=== PATIENT | female | born 2000 | race Caucasian/White ===

== ENCOUNTER 2019-11-28 11:44 | Outpatient (CLI) | payer OTHER, SELFPAY ==
--- NOTE | 2019-11-28 12:04 | US_ITS ---
WS: [id number] EARLY OBSTETRICAL ULTRASOUND (<14 WEEKS). HISTORY: VAGINAL BLEEDING/1ST TRIMESTER COMPARISON: None available. Transabdominal and transvaginal imaging is submitted. Uterus is anteverted. Uterus is normal size. Endometrium is thickened and mildly heterogeneous measuring 8 mm. No intrauterine gestation is identi fied. There is a small amount of free fluid in the cul-de-sac. RIGHT ovary is identified and measures 2.8 x 1.7 x 2.7 cm. Normal vascularity. LEFT ovary is not identified. In the LEFT adnexa is a complex well-circumscribed mass which does not move or peristalsis. Mixed echogenicity with areas of increased echogenicity. This complex mass measu res 2.7 x 3.2 x 2.4 cm. US/US OB <=14 wk fetus w transvag IMPRESSION: 1. No intrauterine gestation identified. Favor complete spontaneous . Without visualizing an intrauterine gestation ectopic cannot be excluded if the re is a positive beta hCG. 2. LEFT adnexal mass with variable echogenicity measures 2.7 x 3.2 x 2.4 cm. D ifferential includes a dermoid and thought less likely to be an ectopic or gladys l loop or torsed ovary.
--- NOTE | 2019-11-28 20:59 | P.HP_ITS ---
Providers/Chief Complaint Primary Care Provider: Vernon Grider MD Chief Complaint: vaginal bleeding History of Present Illness Yaneli Noguera is a 19 year old at 6.6 weeks by LMP of 10/11/2019. She presented to my clinic with concerns of light bleeding with associated left lower pelvic pain that started on the evening of 11/26/2019. The bleeding turned into small clots on 11/27/2019 and then slowly decreased. The patient had not yet had an initial US and a Quantitative bhcg was drawn on 11/27/2019 that was 961. Her progesterone level was 2.3. She was not able to get an US done that day, so had one done on the morning of 11/28/2019. It did not show an intrauterine but did show a left adnexal mass without blood flow to it of uncertain cause. Differential included a dermoid cyst, torsed ovary or ectopic . Due to increasing pain in the left pelvic region and an unclear picture, I spoke with Dr Barragan and we felt it best for the patient to be admitted for observation to follow her pain, quantitativ bhcg levels and status. The patient continues to have light bleeding but has not passed any large clots. Medications/Allergies Allergies Allergy/AdvReac Type Severity Reaction Status Date / Time No Known Allergies Allergy Verified 11/28/19 16:44 PFSH Acute PFSH: Social History Smoking and tobacco status: former smoker Coding Level of Care Code Acute Manufacturing Specialist for [employer]
== END 2019-11-28 11:45 | disposition home or self-care (01) ==
LOC: RAD 11:53
PROVIDERS: PCP Family Medicine; Visit Provider Family Medicine
DX: O46.91 Antepartum hemorrhage, unspecified, first trimester (principal)
CPT/HCPCS: 76801; 76817

== ENCOUNTER 2019-11-28 15:54 | Observation (INO) | payer OTHER, SELFPAY ==
[2019-11-28 16:45] VITALS: BP 143/88; PULSE 98; RESP 14; TEMP 37.4; O2SAT 100; BMI 22.9
[2019-11-28 18:01] LABS: Basophils % 0.6 %; Eosinophils % 0.5 %; Hematocrit 42.2 % (37.0-47.0); Hemoglobin 13.8 g/dL (11.5-15.3); Lymphocytes # 1.4 10^3/uL (0.8-4.8); Lymphocytes % 21.5 %; Mean Corpuscular HGB Conc 32.7 g/dL (30.0-36.0); Mean Corpuscular Hemoglobin 30.1 pg (28.0-34.0); Mean Corpuscular Volume 91.9 fL (81-99); Monocytes # 0.5 10^3/uL (0.2-0.9); Monocytes % 8.1 %; Neutrophils # 4.3 10^3/uL (1.8-7.7); Nucleated Red Blood Cells % 0 %; Platelet Count 182 10^3/cmm (130-400); Red Blood Count 4.59 10^6/uL (4.1-5.3); Red Cell Distribution Width 11.9 % (12.1-15.1); White Blood Count 6.3 10^3/uL (4.0-10.0)
[2019-11-28 18:15] VITALS: RESP 18
[2019-11-28 18:16] LABS: Lactate (Lactic Acid level) 1.5 mmol/L (0.5-2.2)
[2019-11-28 18:18] LABS: Alanine Aminotransferase 18 U/L (0-33); Albumin Level 4.9 g/dL (3.5-5.2); Alkaline Phosphatase 65 IU/L (35-105); Anion Gap 15.9 (5-19); Aspartate Amino Transferase 18 U/L (0-32); Blood Urea Nitrogen 10 mg/dL (6-20); Calcium 9.8 mg/dL (8.5-10.5); Carbon Dioxide 24 mmol/L (22-29); Chloride 104 mmol/L (98-107); Glomerular Filtration Rate 90.5 mL/min (90-130); Glucose 84 mg/dL (65-115); Lipase 27 U/L (13-60); Osmolality Calculated 285 mOsm/kg (285-295); Potassium 3.9 mmol/L (3.5-5.1); Sodium 140 mmol/L (136-145); Total Bilirubin 0.8 mg/dL (0.15-1.2); Total Protein 6.9 g/dL (6.6-8.7)
[2019-11-28] MEDS: acetaminophen 500 mg Tablet PO (18:22)
[2019-11-28 18:46] VITALS: BP 138/63; PULSE 75; RESP 17; O2SAT 96
[2019-11-28 19:24] VITALS: BP 145/88; PULSE 81; RESP 18; O2SAT 96
[2019-11-28 19:54] VITALS: BP 147/93; PULSE 84; RESP 16; TEMP 37.1; O2SAT 100
[2019-11-28 20:15] LABS: Urine Appearance Clear (CLEAR); Urine Color Yellow (Yellow)
[2019-11-28 20:16] LABS: Add Urine Culture? No; Add Urine Microscopic? YES; Bacteria Urine TRACE; Bilirubin Urine Neg (NEGATIVE); Blood Urine 2+ (Negative); Glucose Urine UA Norm (Normal); Ketones Urine Negative (Negative); Leukocyte Esterase Urine Negative (Negative); Mucus Urine 2+; Nitrate Urine Negative (Negative); Protein Urine Neg (Negative); RBC Urine 0-4 /hpf (0-2); Squamous Epithelial Cell Urine 0-4 (0-5); Urobilinogen Urine Neg (Negative); pH Urine 6.5 (5-7)
--- NOTE | 2019-11-28 20:20 | W.ED.ABDPA2 ---
HPI - Abdominal Pain General: Chief Complaint: Abdominal Pain Stated Complaint: cramping and bleeding, preg x 7 weeks Time Seen by Provider: 11/28/19 17:57 Source: patient and other (her OB) Limitations: no limitations History of Present Illness: HPI narrative: Patient is a 19-year-old 1 was about 6 weeks who noticed abdominal cramping and vaginal bleeding that started about 3 or 4 days ago. Bleeding and cramping is still present and worsening. She has seen her OB and an ultrasound done today showed no intrauterine gestation sac identified. There was a left adnexal mass which could be an ectopic , bowel loop, torsed ovary or dermoid cyst. Her OB wanted her direct admitted for evaluation and monitoring and serial hCG monitoring. She denies any fever or urinary symptoms. MD elicited complaint: abdominal pain Associated Symptoms: Denies chills and fever(s) Review of Systems General: Reports: 10 or more systems reviewed and unremarkable except in HPI and below Const: Denies: fever(s), chills or body aches Card: Denies: palpitations, irregular heart rhythm, edema or swelling of feet/ankles Resp: Denies: dyspnea, productive cough or non-productive cough GI: Reports: abdominal pain : Reports: vaginal bleeding Musc: Denies: neck pain, back pain or extremity swelling Skin/Breast: Denies: rash, pruritus or erythema Neuro: Denies: headache(s), numbness in extremities or weakness in extremities Endo: Denies: polyuria, polydipsia or tired all the time PFSH ED PFSH: Social History Smoking and tobacco status: former smoker Physical Exam Const: COMMON NORMALS: no acute distress, average body habitus, patient oriented x3, no limitations, healthy appearing, alert and well nourished HENMT: COMMON NORMALS: normocephalic, atraumatic and moist oral mucous membranes HEAD & SCALP: normocephalic and atraumatic Neck/C-Spine: COMMON NORMALS: no meningeal signs and no JVD Resp: COMMON NORMALS: normal respiratory effort, No retractions, No use of accessory muscles, clear to auscultation bilaterally and percussion normal AUSCULTATION: clear to auscultation bilaterally PERCUSSION: percussion normal Cardio: COMMON NORMALS: no JVD, regular rate, regular rhythm, S1 normal heart sound present, S2 normal heart sound present, No gallops present (Cardio), No clicks present (Cardio), No murmurs present (Cardio), No rub (Cardio) and Peripheral pulses 2+ throughout RATE: regular rate RHYTHM: regular rhythm HEART SOUNDS: S1 normal heart sound present and S2 normal heart sound present PERIPHERAL PULSES: Peripheral pulses 2+ throughout GI: COMMON NORMALS: Normal to inspection, nondistended, normoactive bowel sounds present, Soft to palpation, non-tender, No hepatosplenomegaly present, no masses and no bruits PALPATION: Yes Soft to palpation, Yes Tenderness to palpation present (GI) Details: LLQ and other (suprapubic) and Yes No hepatosplenomegaly present : COMMON NORMALS: Yes no CVA tenderness BLADDER/KIDNEY EXAM: Yes no CVA tenderness Back/Pelvis: COMMON NORMALS: no CVA tenderness Neuro: COMMON NORMALS: patient oriented x3 SENSORIUM/ORIENTATION: Yes alert MENINGEAL SIGNS: Yes no meningeal signs Skin: COMMON NORMALS: no rashes or lesions noted, no wounds, turgor normal, no jaundice, no petechiae and no mottling GENERAL SKIN EXAM: no rashes or lesions noted and turgor normal Course Consultations: Consultation #1: Dr. Grider, he kindly accepted patient to his service. Time: 18:12 Vital Signs: Vital signs: Vital Signs Temperature 98.7 F 11/28/19 19:54 Pulse Rate 84 11/28/19 19:54 Respiratory Rate 16 11/28/19 19:54 Blood Pressure 147/93 11/28/19 19:54 Pulse Oximetry 100 11/28/19 19:54 MDM - Abdominal Pain MDM Narrative: Medical decision making narrative: 19-year-old female patient who is 6 weeks and has some vaginal bleeding. She is being admitted by her OB for further evaluation and management. She may possibly have had a spontaneous , but due to left adnexal mass an ectopic or a torsed ovary cannot be ruled out. Medical Records: Attestation: I reviewed the patient's medical records. Lab Data: Attestation: I reviewed the patient's lab results. Labs: Lab Results 06/26/20 06/26/20 06/26/20 Range/Units 17:45 17:45 17:45 WBC 6.3 (4.0-10.0) 10^3/ uL RBC 4.59 (4.1-5.3) 10^6/u L Hgb 13.8 (11.5-15.3) g/dL Hct 42.2 (37.0-47.0) % MCV 91.9 (81-99) fL MCH 30.1 (28.0-34.0) pg MCHC 32.7 (30.0-36.0) g/dL RDW 11.9 L (12.1-15.1) % Plt Count 182 (130-400) 10^3/c mm MPV 10.0 (7.4-10.4) fL Neut % (Auto) 69.0 % Lymph % (Auto) 21.5 % Jerome % (Auto) 8.1 % Eos % (Auto) 0.5 % Baso % (Auto) 0.6 % Neut # (Auto) 4.3 (1.8-7.7) 10^3/u L Lymph # (Auto) 1.4 (0.8-4.8) 10^3/u L Jerome # (Auto) 0.5 (0.2-0.9) 10^3/u L Eos # (Auto) 0.0 (0.0-0.8) 10^3/u L Baso # (Auto) 0.0 (0.0-0.1) 10^3/u L Nucleated RBC % (a uto) 0 % Nucleated RBCs # 0.0 /100WBC Sodium 140 (136-145) mmol/L Potassium 3.9 (3.5-5.1) mmol/L Chloride 104 (98-107) mmol/L Carbon Dioxide 24 (22-29) mmol/L Anion Gap 15.9 (5-19) BUN 10 (6-20) mg/dL Creatinine 0.8 (0.5-0.9) mg/dL GFR Calculation 90.5 (90-130) mL/min Glucose 84 (65-115) mg/dL Calculated Osmolal ity 285 (285-295) mOsm/k g Lactate 1.5 (0.5-2.2) mmol/L Calcium 9.8 (8.5-10.5) mg/dL Total Bilirubin 0.8 (0.15-1.2) mg/dL AST 18 (0-32) U/L ALT 18 (0-33) U/L Alkaline Phosphata se 65 (35-105) IU/L Total Protein 6.9 (6.6-8.7) g/dL Albumin 4.9 (3.5-5.2) g/dL Globulin 2.0 (1.3-4.6) g/dL Lipase 27 (13-60) U/L Discharge Plan Discharge Patient Disposition: Placed in Observation Admit Provider: Vernon Grider Clinical Impression: Vaginal bleeding Condition: Stable Interventions: ED Discharge Assessment Last Done: 11/28/19 19:24 ED Charges Last Done: 11/28/19 19:24 Discharge Date/Time: 11/28/19 19:20 Coding Level of Care Code ED Operations Vocational Instructor for Noemi Goodrich
--- NOTE | 2019-11-28 21:08 | P.HP_ITS ---
Providers/Chief Complaint Admitting Physician: Vernon Grider MD Primary Care Provider: Vernon Grider MD Chief Complaint: cramping and bleeding, preg x 7 weeks History of Present Illness Yaneli Noguera is a 19 year old at 6.6 weeks by LMP of 10/11/2019. She presented to my clinic with concerns of light bleeding with associated left lower pelvic pain that started on the evening of 11/26/2019. The bleeding turned into small clots on 11/27/2019 and then slowly decreased. The patient had not yet had an initial US and a Quantitative bhcg was drawn on 11/27/2019 that was 961. H er progesterone level was 2.3. She was not able to get an US done that day, so had one done on the morning of 11/28/2019. It did not show an intrauterine but did show a left adnexal mass without blood flow to it of uncertain cause. Differential included a dermoid cyst, torsed ovary or ectopic . Due to increasing pain in the left pelvic region and an unclear picture, I spoke with Dr Barragan and we felt it best for the patient to be admitted for observation to follow her pain, quantitativ bhcg levels and status. The patient continues to have light bleeding but has not passed any large clots. Review of Systems Narrative: The patient denies chest pains, shortness of breath, nausea, vomiting, diarrhea, constipation, dysuria. Medications/Allergies Home Medications Medication Instructions Recorded Confirmed Last Taken Type PNV cmb#95-ferrous fumarate-FA 1 tab PO DAILY 11/28/19 11/28/19 11/28/19 08:00 History [ Multivitamins] acetaminophen [Tylenol] 650 mg PO QID PRN 11/28/19 11/28/19 11/28/19 15:00 History Allergies Allergy/AdvReac Type Severity Reaction Status Date / Time No Known Allergies Allergy Verified 11/28/19 16:44 PFSH Acute PFSH: Family History (Updated 11/28/19 @ 21:14 by Vernon Grider MD) Mother Diabetes Social History Smoking and tobacco status: former smoker Vitals/I&O/Wt Last Vital Signs Temp 98.7 F 11/28/19 19:54 Pulse 84 11/28/19 19:54 Resp 16 11/28/19 19:54 BP 147/93 11/28/19 19:54 Pulse Ox 100 11/28/19 19:54 Weight last 48 hrs Weight 160 lb Physical Exam Narrative: EXAM NARRATIVE: General: Alerta and oriented x 3 Mouth: Mucous membranes moist Cardiac: Regular rate and rhythm without murmurs Lungs: Clear to auscultations bilaterally without wheezes, crackles or ronchi Abdomen: There is moderate to severe tenderness in the left lower pelvic region to palpation. No rebound tenderness noted. No significant pain in the abdomen otherwise. Extremities: No edema. Data : 11/28/19 17:45 11/28/19 17:45 A&P Additional A&P Information The cause of the patient's underlying pain is not clear at this time but the differential would be an ectopic , dermoid tumor or torsed ovary without blood flow. The patient will be admitted for observation to watch for signs of complications of these and we will recheck her Quantitative Bhcg tomorrow at 1pm which will be 48 hours from her last lab draw that was 961. Depending on findings will determine the next step. I doubt that she has an intrauterine as her levels should be much higher than this based on her LMP but if this is a normal I would expect a doubling of her Quantitative hcg in 48-[address] Barragan has been notified of this patient and will consult. I appreciate his assistance with this patient. He will determine the need for any possible surgical management. Attestations Medical Necessity Statement*: The patient is currently under observation for the above issues. I expect her stay to be less than two midnights at this time but will follow based on testing. Coding Level of Care Code Acute Workforce Development Program Director for Noemi Goodrich
[2019-11-28] MEDS: dextrose 5%-sod chloride 0.9% 1,000 ML 125 ML IV (22:09)
[2019-11-28 23:44] VITALS: BP 130/80; PULSE 72; RESP 16; TEMP 37.2
[2019-11-29 05:27] VITALS: BP 123/69; PULSE 81; RESP 16; TEMP 36.7; O2SAT 99
--- NOTE | 2019-11-29 06:24 | PC.NURSE ---
pt rested well tonight with no acute events. Generalized pain through lower abd with sharp pain to the left side on occassion. Pt had good urine output and early this morning passed what was described by pt as a quarter sized clot/tissue .
[2019-11-29] MEDS: dextrose 5%-sod chloride 0.9% 1,000 ML 125 ML IV ×2 (06:35→13:57)
[2019-11-29] MEDS: prenatal vitamin Capsule 1 CAP PO (07:06)
[2019-11-29] MEDS: acetaminophen 500 mg Tablet PO ×2 (07:54→13:56)
[2019-11-29 08:00] VITALS: BP 121/77; PULSE 94; RESP 12; TEMP 36.7; O2SAT 100
--- NOTE | 2019-11-29 11:26 | PC.NURSE ---
BLOOD CLOTS PATIENT HAS PASSED A FEW SMALL CLOTS WITH URINATION THIS MORNING. CRAMPING HAS IMPROVED.
[2019-11-29 12:00] VITALS: BP 128/74; PULSE 71; RESP 14; TEMP 37.1; O2SAT 100
--- NOTE | 2019-11-29 12:47 | PM.PN ---
Subjective Subjective: Interval history: The patient had some mild bleeding overnight as well as one clot that was approximately ping-pong ball size. It did not look like it had any tissue in it. Overall her pain has been stable and has been controlled well with Tylenol. Vitals/I&O/Wt Last Vital Signs Temp 98.8 F 11/29/19 12:00 Pulse 71 11/29/19 12:00 Resp 14 11/29/19 12:00 BP 128/74 11/29/19 12:00 Pulse Ox 100 11/29/19 12:00 11/28/19 11/29/19 11/29/19 22:59 06:59 14:59 Intake Total 500 / 500 950 / 1450 Output Total 250 / 250 775 / 1025 750 / 750 Balance 250 / 250 175 / 425 -750 / -750 Weight last 48 hrs Weight 160 lb Physical Exam Narrative: EXAM NARRATIVE: General: Alert and oriented x3 Eyes: PERRLA, EOMI Mouth: Mucous membranes moist Cardiac: Regular rate and rhythm without murmurs Lungs: Clear to auscultation bilaterally without wheezes, crackles or rhonchi Abdomen: No hepatosplenomegaly present. Mild to moderate pain in the left lower abdomen and suprapubic region. Slightly improved from yesterday's exam. Extremities: No significant edema. Data : 11/28/19 17:45 11/28/19 17:45 A&P Additional A&P Information The patient will get her hCG level drawn at approximately 1:00 this afternoon. We will await results and if the levels are above 1500, will plan for repeat ultrasound. If they are below 1500 we will decide based on levels. I appreciate Dr. Barragan's consultation with this patient. Further plans in terms of treatment options which may include surgical intervention or methotrexate will be deferred to Dr. Barragan based on his recommendations. Currently the patient is hemodynamically stable. Potential contraindications to methotrexate use may be uncertainty of the cause of her left adnexal mass as well as living approximately 45 minutes from the hospital. All questions were answered. Attestations Medical Necessity Statement*: The patient continues to be under observation for the above. We will proceed pending hCG levels. Coding Level of Care Code Acute Railroad Car Inspector for Noemi Goodrich
[2019-11-29 14:01] LABS: Basophils % 0.9 %; Eosinophils % 0.6 %; Hematocrit 38.8 % (37.0-47.0); Hemoglobin 12.9 g/dL (11.5-15.3); Lymphocytes # 1.3 10^3/uL (0.8-4.8); Lymphocytes % 27.2 %; Mean Corpuscular HGB Conc 33.2 g/dL (30.0-36.0); Mean Corpuscular Hemoglobin 30.3 pg (28.0-34.0); Mean Corpuscular Volume 91.1 fL (81-99); Mean Platelet Volume 10.3 fL (7.4-10.4); Monocytes # 0.4 10^3/uL (0.2-0.9); Neutrophils # 2.9 10^3/uL (1.8-7.7); Neutrophils % 63.1 %; Nucleated Red Blood Cells % 0 %; Platelet Count 148 10^3/cmm (130-400); Red Blood Count 4.26 10^6/uL (4.1-5.3); Red Cell Distribution Width 11.9 % (12.1-15.1); White Blood Count 4.6 10^3/uL (4.0-10.0)
--- NOTE | 2019-11-29 14:29 | PC.CHAP ---
Pastoral Care Encounter/Spiritual Assessment Type of Contact [] Declined videotape operator visit [] Patient/Family/Request visit [] Outpatient visit [] Follow-up visit [] Physician referral [] Code/Alert [X] Routine visit [] Staff referral [] Actively dying [] Patient sleeping [] Family support [] [] Out of room [] Palliative care [] [] Receiving care in room [] Pre-surgical visit [] Trauma [] Long length of stay [] ICU visit [] Other: Relational/Emotional Strength [] Patient feels connected with others/family/visitors/staff [] Distress [] Loneliness/isolation [] Abandonment Spirituality of Patient [] Person of [place] [] Attends Quaker of their [place] [] Believes in Prayer [] Reads Bible or Zoroastrianism materials [] There are Spiritual issues to be addressed Monogram Machine Operator Interventions [X] Prayer [X] Active listening [] Non-anxious presence [] Spiritual/emotional support [] Crisis/trauma care [] Spiritual counseling [] Bereavement support [] Provided bereavement packet [] Provided Bible/devotional materials [] Provided toy/stuffed animal, coloring book to patient or family member [] Provided Communion [] Anointing/[place] [] Salvation [] Completed spiritual assessment [] Other: Impact on Illness or Injury [] Angry [] Fearful [] Anxious [] Often cries [] Exhaustion [] Unable to work [] Unable to attend latter-day [] Unable to walk/stand [] Unable to read [] Unable to drive [] Unable to eat/drink [] Unable to sleep [] Unable to be with family [] Patient intubated [] Other: Summary 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 SHE REQUESTS DAILY DIRECTOR OF MATERIALS MANAGEMENT VISITS. HAD PRAYER, WILL HAVE PRAYER AGAIN AND AGAIN. A VERY UPLIFTING YOUNG LADY TO VISIT. Time spent with patient
--- NOTE | 2019-11-29 15:10 | PC.NURSE ---
HCG RESULTS DR. ENGLE CALLED WITH HCG RESULTS. INSTRUCTED TO CONTACT DR. RONQUILLO.
--- NOTE | 2019-11-29 15:21 | PM.DCS ---
Discharge Providers Date of Admission: 11/28/19 18:18 Date of Discharge: November 29, 2019 Attending Provider at Admission: Vernon Grider MD Attending Provider at Discharge: Vernon Grider MD Primary Care Provider: Vernon Grider MD Diagnoses at Discharge Discharge Diagnosis (1) Adnexal mass: Status: Acute (2) Miscarriage: Status: Acute Reason for Visit Reason for Visit: cramping and bleeding, preg x 7 weeks Hospital Course Hospital Course: The patient was admitted to the hospital for observation secondary to pain in the left adnexa with a positive test associated with bleeding and a left adnexal mass on ultrasound without signs of an intrauterine . There was concern that this could be an ectopic versus an early miscarriage with a separate left adnexal cyst or mass. The patient was monitored overnight and her beta-hCG levels declined from 961 in the clinic to 148, 48 hours later. The patient's pain is decreasing and she did pass something consistent with tissue. At this time it is felt that the patient had a miscarriage from an intrauterine and that she has a separate left adnexal mass that was likely present prior to . The differential for this would be a cyst versus a dermoid tumor. In order to follow-up on this and confirm that it is not growing in size quickly that would be concerning for a more immediate need for surgical intervention, we will get a repeat ultrasound early next week. Dr. Barragan was consulted for this case and give his recommendations as above. The patient will follow-up with me early next week for further evaluation. We will need to follow the hCG levels to 0 and further evaluation of the left adnexal mass will continue to be needed. Physical Exam Narrative: EXAM NARRATIVE: General: Alert and oriented x3 Eyes: PERRLA, EOMI Mouth: Mucous membranes moist Cardiac: Regular rate and rhythm without murmurs Lungs: Clear to auscultation bilaterally without wheezes, crackles or rhonchi Abdomen: No hepatosplenomegaly present. Mild to moderate pain in the left lower abdomen and suprapubic region. Slightly improved from yesterday's exam. Extremities: No significant edema. Discharge Data Data Completed and Pending: Labs from last 24 hours 11/29/19 11/29/19 11/28/19 13:57 13:57 18:50 WBC 4.6 RBC 4.26 Hgb 12.9 Hct 38.8 MCV 91.1 MCH 30.3 MCHC 33.2 RDW 11.9 L Plt Count 148 MPV 10.3 Neut % (Auto) 63.1 Lymph % (Auto) 27.2 Walton % (Auto) 8.0 Eos % (Auto) 0.6 Baso % (Auto) 0.9 Neut # (Auto) 2.9 Lymph # (Auto) 1.3 Walton # (Auto) 0.4 Eos # (Auto) 0.0 Baso # (Auto) 0.0 Nucleated RBC % (a uto) 0 Nucleated RBCs # 0.0 Sodium Potassium Chloride Carbon Dioxide Anion Gap BUN Creatinine GFR Calculation Glucose Calculated Osmolal ity Lactate Calcium Total Bilirubin AST ALT Alkaline Phosphata se Total Protein Albumin Globulin Lipase Ser , Paola i-Qnt 148.20 Urine Color Yellow Urine Appearance Clear Urine pH 6.5 Ur Specific Gravit y 1.020 Urine Protein Neg Urine Glucose (UA) Norm Urine Ketones Negative Urine Blood 2+ H Urine Nitrate Negative Urine Bilirubin Neg Urine Urobilinogen Neg Ur Leukocyte Iveth ase Negative Urine RBC 0-4 H Urine WBC None Ur Squamous Epith Cells 0-4 H Amorphous Sediment Not Reportable Urine Bacteria Trace Urine Mucus 2+ 11/28/19 11/28/19 11/28/19 17:45 17:45 17:45 WBC 6.3 RBC 4.59 Hgb 13.8 Hct 42.2 MCV 91.9 MCH 30.1 MCHC 32.7 RDW 11.9 L Plt Count 182 MPV 10.0 Neut % (Auto) 69.0 Lymph % (Auto) 21.5 Walton % (Auto) 8.1 Eos % (Auto) 0.5 Baso % (Auto) 0.6 Neut # (Auto) 4.3 Lymph # (Auto) 1.4 Walton # (Auto) 0.5 Eos # (Auto) 0.0 Baso # (Auto) 0.0 Nucleated RBC % (a uto) 0 Nucleated RBCs # 0.0 Sodium 140 Potassium 3.9 Chloride 104 Carbon Dioxide 24 Anion Gap 15.9 BUN 10 Creatinine 0.8 GFR Calculation 90.5 Glucose 84 Calculated Osmolal ity 285 Lactate 1.5 Calcium 9.8 Total Bilirubin 0.8 AST 18 ALT 18 Alkaline Phosphata se 65 Total Protein 6.9 Albumin 4.9 Globulin 2.0 Lipase 27 Ser , Paola i-Qnt Urine Color Urine Appearance Urine pH Ur Specific Gravit y Urine Protein Urine Glucose (UA) Urine Ketones Urine Blood Urine Nitrate Urine Bilirubin Urine Urobilinogen Ur Leukocyte Iveth ase Urine RBC Urine WBC Ur Squamous Epith Cells Amorphous Sediment Urine Bacteria Urine Mucus Vitals: Last Vital Signs Temp 98.8 F 11/29/19 12:00 Pulse 71 11/29/19 12:00 Resp 14 11/29/19 12:00 BP 128/74 11/29/19 12:00 Pulse Ox 100 11/29/19 12:00 Discharge Plan Discharge Patient Disposition: Home, Self-Care Condition: Stable Prescriptions: Continued Tylenol 325 mg Capsule 650 mg PO QID PRN (Reason: Pain) RF: 0 Multivitamins 28 mg iron- 800 mcg Tablet 1 tab PO DAILY RF: 0 Discharge Orders: Discharge Order (Routine); Ordered 11/29/19 Ordered By: Vernon Grider Referrals: Vernon Grider MD [Primary Care Provider] - 1 week (Have her make a follow up appointment for 1-2 days after her US next week. Please set up pelvic US for or Sun of next week. Thanks. Faxed to scheduling and they should call you with an appointment for a ultra sound. Call Dr. Tran office and make a appointment for 1-2 days after your Ultra Sound.) Discharge Diet: Advance as tolerated Discharge Activity: Increase activity as tolerated Activity Restrictions/Additional Instructions: Nothing per vagina for 6 weeks. Avoid baths until after bleeding stops. Showers are okay. If your pain becomes significantly worse, please return to the ER immediately for re-evaluation. Discharge Date/Time: 11/29/19 17:00 Discharge Attestations Time Spent in Discharge Care*: greater than 30 min Quality Metrics Clinical Quality Measures During this hospital stay, did patient experience: None Coding Level of Care Code Acute Natural History Collections Curator for Ch[facility] F[facility] Diagnoses Adnexal mass N94.89 Miscarriage O03.9
[2019-11-29 15:51] VITALS: BP 128/74; PULSE 71; RESP 14; TEMP 37.1; O2SAT 100
== END 2019-11-29 17:00 | disposition home or self-care (01) ==
LOC: ER 17:57 → MEDSURG 18:36
PROVIDERS: Family Medicine; Admitting Provider Family Medicine; PCP Family Medicine; Visit Provider Family Medicine
DX: O03.9 Complete or unspecified spontaneous abortion without complication (principal); N94.89 Other specified conditions associated with female genital organs and menstrual cycle
CPT/HCPCS: 12345; 36415; 80053; 81001; 83605; 83690; 84702; 85025; 96361; 96374; 99282; 99285; G0378

== ENCOUNTER 2019-12-02 09:39 | Outpatient (CLI) | payer OTHER, SELFPAY ==
--- NOTE | 2019-12-02 09:44 | US_ITS ---
WS: [id number] ULTRASOUND PELVIS TECHNIQUE: Transabdominal and transvaginal. ULTRASOUND PELVIS TECHNIQUE: Transabdominal. CLINICAL INFORMATION: PELVIC MASS : No. COMPARISON: November 28, 2019 FINDINGS: Uterus Orientation: Anteverted. Size: 8.05 cm x 4.5 cm x 3.2 cm. Masses: None. Cervix: Nabothian cyst Endometrium: Normal with trace fluid Endometrium thickness: 0.3 cm. Adnexa: Persistent indeterminant shadowing complex left adnexal lesion appears stable since the prior examination measuring 2.8 x 2.5 x 2.7 cm. Differential considerations are unchanged include dermoid versus less likely prominent bowel loop. Ectopic unlikely at this point Right ovary size: 3.1 cm x 1.6 cm x 2.2 cm. Right ovary volume: 5.9 ccm3. Free fluid: None. Other findings: None. US/US pelvic with transvaginal IMPRESSION: 1. No intrauterine gestation. 2. Again seen is the complex left adnexal lesion not significant changed. Diff erential considerations are unchanged and although nonspecific calcified dermoi d is favored. Complex endometrioma is additional consideration 3. No free fluid in the cul-de-sac.
== END 2019-12-02 09:40 | disposition home or self-care (01) ==
LOC: US 09:40
PROVIDERS: PCP Family Medicine; Visit Provider Family Medicine
DX: R19.00 Intra-abdominal and pelvic swelling, mass and lump, unspecified site (principal)
CPT/HCPCS: 76830; 76856

== ENCOUNTER → 2019-12-29 16:07 | Outpatient (BNVA) | payer OTHER, SELFPAY | PROVIDERS: PCP Family Medicine; Visit Provider Obstetrics & Gynecology | DX: D27.1 Benign neoplasm of left ovary (principal) | CPT/HCPCS: 76830 ==

== ENCOUNTER → 2020-02-27 08:31 | Outpatient (BNVA) | payer OTHER, SELFPAY | PROVIDERS: PCP Family Medicine; Visit Provider Obstetrics & Gynecology | DX: N94.89 Other specified conditions associated with female genital organs and menstrual cycle (principal); Z20.828 Contact with and (suspected) exposure to other viral communicable diseases | CPT/HCPCS: 87635 ==

== ENCOUNTER 2020-03-03 11:11 | Observation (INO) | payer OTHER, SELFPAY ==
[2020-03-01 10:47] VITALS: BMI 22.9
--- NOTE | 2020-03-01 11:06 | ANES.PREANE2 ---
Pre-Anesthetic Assessment Pre-Anesthetic Assessment: Height/Weight: Height 1.78 m Weight 72.575 kg Preop Diagnosis: Left ovarian mass Proposed Procedure: Operation Date: 03/03/20 08:00 Proposed Procedures p Laparoscopic Ovarian mass excision left 58021 N94.89(Left) - Apollo Barragan MD Familial anesthetic complications: None Social: Social History: No alcohol Comment: former smoker Exam: Pre-Anes Outpt Exam: alert, oriented x 3, clear to auscultation bilaterally and regular rate & rhythm Airway: Cervical ROM: WNL MP: 2 Dentition: Full Anesthetic Plan: ASA status: 1 Anesthesia: General Risk of > 500 ml blood loss (7ml/kg in children): No PFSH Anesthesia PFSH: Family History Mother Diabetes Hypertension Father No problems noted. Daughter No problems noted. Family/Other Cervical cancer maternal aunt CAD (coronary artery disease) maternal aunts maternal uncle Diabetes maternal aunts maternal uncle Hypertension maternal aunts maternal uncle Stroke maternal aunt Grandmother CAD (coronary artery disease) maternal Diabetes maternal Hypertension maternal Denies family history of Clotting disorder Hyperlipidemia Anesthesia complication Bleeding disorder Social History (Updated 02/23/20 @ 08:01 by Haylee Marquez RN) Smoking and tobacco status: former smoker Alcohol intake: current Alcohol intake frequency: few times a month Alcohol type: wine and hard liquor Female Reproductive History: Date of last menstrual period: 02/26/20 Data Anesthesia Cardiac Studies: No Data to Display
[2020-03-01 11:08] LABS: Add Urine Microscopic? NO
[2020-03-01 11:14] LABS: Basophils # 0.1 10^3/uL (0.0-0.1); Basophils % 1.5 %; Eosinophils # 0.1 10^3/uL (0.0-0.8); Eosinophils % 1.8 %; Hematocrit 41.9 % (37.0-47.0); Hemoglobin 13.9 g/dL (11.5-15.3); Lymphocytes # 1.2 10^3/uL (0.8-4.8); Lymphocytes % 29.8 %; Mean Corpuscular HGB Conc 33.2 g/dL (30.0-36.0); Mean Corpuscular Hemoglobin 30.7 pg (28.0-34.0); Mean Corpuscular Volume 92.5 fL (81-99); Monocytes # 0.4 10^3/uL (0.2-0.9); Monocytes % 9.3 %; Neutrophils # 2.23 10^3/uL (1.8-7.7); Neutrophils % 57.3 %; Nucleated Red Blood Cells % 0 %; Platelet Count 183 10^3/cmm (130-400); Red Blood Count 4.53 10^6/uL (4.1-5.3); White Blood Count 3.9 10^3/uL (4.0-10.0)
[2020-03-01 11:21] LABS: Bilirubin Urine Neg (Negative); Blood Urine Neg (Negative); Glucose Urine UA Norm (Normal); Ketones Urine Negative (Negative); Leukocyte Esterase Urine Negative (Negative); Nitrate Urine Negative (Negative); OR HCG Qualitative Urine Negative (Negative); Protein Urine Neg (Negative); Specific Gravity, Urine 1.015 (1.005-1.030); Urine Appearance Clear (CLEAR); Urine Color Yellow (Yellow); Urobilinogen Urine Norm (Negative); pH Urine 6.5 (5-7)
[2020-03-01 11:43] LABS: Anion Gap 11.2 (5-19); Blood Urea Nitrogen 12 mg/dL (6-20); Calcium 9.5 mg/dL (8.5-10.5); Carbon Dioxide 26 mmol/L (22-29); Chloride 107 mmol/L (98-107); Glomerular Filtration Rate 90.5 mL/min (90-130); Glucose 81 mg/dL (65-115); Osmolality Calculated 289 mOsm/kg (285-295); Potassium 4.2 mmol/L (3.5-5.1); Sodium 140 mmol/L (136-145)
[2020-03-03] VITALS (19 sets, daily range): BP systolic 92–142; BP diastolic 59–104; PULSE 60–84; RESP 12–20; TEMP 36.2–37.1; O2SAT 93–100
[2020-03-03] MEDS: scopolamine 1.5 Patch 1 PATCH TRANSDERMA (06:10)
[2020-03-03] MEDS: lactated ringers 500 ML IV (06:15)
--- NOTE | 2020-03-03 06:58 | W.PM.OPSUD ---
Surgery/Procedure H&P Update DATE OF PROCEDURE: March 03, 2020 DATE H&P PERFORMED: 02/23/20 H&P UPDATE INFORMATION: I have reviewed H&P completed within last 30 days, I have examined patient prior to procedure and No changes to prior documentation PREOP DIAGNOSIS: Left ovarian mass PLANNED PROCEDURE: Operation Date: 03/03/20 07:00 Proposed Procedures p Laparoscopic Ovarian mass excision left 73147 N94.89(Left) - Apollo Barragan MD
[2020-03-03] MEDS: sodium chloride 0.9% 1,000 ML 30 ML IV (07:01)
--- NOTE | 2020-03-03 08:56 | P.OP_ITS ---
Operative Report Date of procedure: March 03, 2020 Pre-op Diagnosis: Left ovarian mass Post-op diagnosis: same Procedure Done: Laparoscopic left oophorectomy Specimens removed/disposition: Left ovary Surgeon: Apollo Barragan M.D. Anesthesia: General Estimated blood loss (mL): 10 IV fluids (mL): 800 Urine output (mL): 300 Complications: None Findings: Enlarge irregular shaped left ovary Condition: stable Disposition: PACU Brief History: 19-year-old female with a left ovarian mass Procedure: After informed consent, the patient was taken to the operating room where general anesthesia was administered. Pre-Procedure Time-Out verifying the correct patient identity, correct procedure verified with consent, correct site and side, correct patient position, availability of correct implants and any special equipment or requirements was performed and acknowledge by the OR team. She was placed in the dorsal lithotomy position and prepped and draped in sterile fashion. The patient was examined under anesthesia and found to have a normal uterus with normal adnexa. A Brumfield catheter was placed in the bladder. A weighted speculum was placed in the vagina, and the anterior lip of cervix was grasped with the single toothed tenaculum. The uterus was sounded to a measure 8 cm. A uterine manipulator was advanced into the endocervical and its bulb filled with NS. Tenaculum was removed after uterine manipulator was secured. The speculum was removed from the vagina. The attention was brought to abdomen after changing gloves. The base of the umbilicus was grasped with an Allis clamp and with 2 towel clamp bilaterally tenting up the umbilicus an intraumbilical incision was made with a scalpel. While tenting up on the abdomen, a Verres needle with sleeve was admitted into the intra-abdominal cavity. A saline drop test was performed and noted to be within normal limits. Pneumoperitoneum was attained with 4 liters of carbon dioxide. The gas was seen to flow freely with normal resistance, so the CO2 gas was advanced to a higher setting. The abdomen was insufflated to an adequate distension. Once an adequate distention was reached, the Verres needle was removed. Then a 5 mm Optiview trocar and cannula were inserted under direct visualization without complications. Trocars were removed and the laparoscope was inserted. At this time, a second incision was made 3 cm above the symphysis pubis, and a 12 mm trocar and sleeve were admitted into the abdomen under direct, laparoscopic visualization without complication. A 5 mm blunt probe was advanced through the second trocar sleeve, and light manipulation of ovaries and uterus to assess the pelvis and posterior aspects was performed. The survey showed enlarged irregular shape left ovary, mild endometirosis with a couple of visible lesions in the cul-de-sac and anterior abdominal wall. A third incision was made in the left lower quadrant and the third trocar was inserted into the abdomen under direct visualization without complcations . Examination of the pelvis revealed findings as above. At this time, the left ovarian mass was identified and attention was turned to it which was mobilized out of the pelvis. At this point, the left ovary was excised using the voyant device. The ovary was placed in the anterior cul-de-sac. The pelvis was then irrigated, and once hemostasis was assured, the Endo Catch bag was placed th rough the 12 mm port and the left ovarian mass was placed in the Endo Catch bag and removed through the 12 mm incision without difficulty. At this time, the pelvis was again copiously irrigated and dried. Hemostasis was assured. At this time, all instruments were removed under visualization. The umbilical incision was closed using 2 interrupted stitches of 2-0 Vicryl sutures and the skin was closed using interrupted stitches of 4-0 Monocryl suture. All instruments were removed. There was slight oozing noted at the site of the single-toothed tenaculum insertion, obtained hemostasis using ring forceps pressure. The instruments were removed from the vagina, and excellent hemostasis was noted. The patient tolerated the procedure well, and sponge, lap and needle count were correct times two. The patient taken to the recovery room in good condition.
[2020-03-03] MEDS: fentaNYL 50 mcg/mL INJ 2mL IVP ×2 (09:04→09:09)
--- NOTE | 2020-03-03 09:20 | PM.PACU ---
PACU note Post-Anesthesia Exam: awake and vital signs stable Disposition: admitted
--- NOTE | 2020-03-03 14:24 | PC.NURSE ---
Patient stated she has passed gas and has urinated well. Patient has ambulated well.
[2020-03-03] MEDS: ketorolac 30 mg/mL INJ IVP ×2 (14:35→20:12)
[2020-03-03] MEDS: docusate sodium 100 mg Capsule PO ×2 (14:36→17:46)
[2020-03-03] MEDS: dextrose 5%-lactated ringers 1,000 ML 125 ML IV ×2 (14:36→23:05)
[2020-03-03 15:18] LABS: Hematocrit 38.2 % (37.0-47.0); Hemoglobin 12.8 g/dL (11.5-15.3); Mean Corpuscular HGB Conc 33.5 g/dL (30.0-36.0); Mean Corpuscular Hemoglobin 30.8 pg (28.0-34.0); Mean Platelet Volume 10.4 fL (7.4-10.4); Platelet Count 152 10^3/cmm (130-400); Red Blood Count 4.15 10^6/uL (4.1-5.3); Red Cell Distribution Width 11.9 % (12.1-15.1); White Blood Count 7.2 10^3/uL (4.0-10.0)
[2020-03-03] MEDS: HYDROcodone-acetaminophen 5-325 mg Tablet PO (23:12)
[2020-03-04] VITALS: BP 106/54; PULSE 60; RESP 18; TEMP 36.7; O2SAT 97
[2020-03-04] MEDS: ketorolac 30 mg/mL INJ IVP (02:17)
[2020-03-04 04:00] VITALS: BP 120/50; PULSE 67; RESP 18; TEMP 37.1; O2SAT 97
[2020-03-04] MEDS: dextrose 5%-lactated ringers 1,000 ML 125 ML IV (06:12)
[2020-03-04] MEDS: HYDROcodone-acetaminophen 5-325 mg Tablet PO (06:15)
[2020-03-04 08:00] VITALS: BP 102/64; PULSE 62; RESP 16; TEMP 36.7; O2SAT 99
[2020-03-04] MEDS: docusate sodium 100 mg Capsule PO (08:43)
[2020-03-04] MEDS: prenatal vitamin Capsule 1 CAP PO (08:52)
--- NOTE | 2020-03-04 09:54 | PM.OBGYDC ---
Discharge Providers EXECUTIVE SALES MANAGER Date of Admission: 03/03/20 11:11 Date of Discharge: 03/04/20 Attending Provider at Admission: Apollo Barragan MD Attending Provider at Discharge: Apollo Barragan MD Primary Care Provider: Vernon Grider MD Diagnoses at Discharge Discharge Diagnosis (1) Adnexal mass: Status: Acute Problem details: S/P Laparoscopic removal of left ovary. Reason for Visit Reason for Visit: left ovarian mass Hospital Course Hospital Course: 19-year-old female with a left ovarian mass, admitted for left laparoscopic oophorectomy. The procedure was performed without complications. She also was found with mild endometriosis, and endometriosis lesions were fulgurated. Overnight postop observation was uneventful. She is afebrile hemodynamically stable. Tolerating diet well. Ambulating without difficulty. Physical Exam Narrative: EXAM NARRATIVE: GA: Alert and oriented ?3. HEENT: WNL. Heart: Regular rate and rhythm. Lungs: Clear to auscultation bilaterally. Abdomen: Bowel sounds present, nontender, minimal tenderness, incision clean and dry, no redness, pain or edema. CLOTHING MANAGER: No bleeding. Extremities: No edema, no cyanosis, no calves pain. Discharge Data Data Completed and Pending: Pending at discharge Category Date Time Status ES surgery / GI i mages Routine Exams 03/03/20 06:49 Taken Pathology: Surgic al [PTH] Routine Pth 03/03/20 08:32 Received Labs from last 24 hours 03/03/20 15:05 WBC 7.2 RBC 4.15 Hgb 12.8 Hct 38.2 MCV 92.0 MCH 30.8 MCHC 33.5 RDW 11.9 L Plt Count 152 MPV 10.4 Vitals: Last Vital Signs Temp 98.0 F 03/04/20 08:00 Pulse 62 03/04/20 08:00 Resp 16 03/04/20 08:00 BP 102/64 03/04/20 08:00 Pulse Ox 99 03/04/20 08:00 Discharge Plan Discharge Condition: Stable Prescriptions: [place] 5-325 mg tablet 1 tab PO Q4H PRN (Reason: pain) Qty: 20 RF: 0 acetaminophen 325 mg capsule 325 mg PO Q4H PRN (Reason: fever or pain) Qty: 60 RF: 0 Continued PNV cmb#[id number]-ferrous fumarate-FA [ Multivitamins] 28 mg iron- 800 mcg Tablet 1 tab PO DAILY RF: 0 Discharge Orders: Discharge Order (Routine); Ordered 03/04/20 Ordered By: Apollo Barragan Referrals: Apollo Barragan MD [Physician] - 03/19/20 8:30 am Discharge Diet: Regular Discharge Activity: Increase activity as tolerated Patient Instructions: Endometriosis, Endometriosis (DC), Laparoscopic Excision of Ovarian Cysts (DC) Activity Restrictions/Additional Instructions: 1. Please call [facility] on next working day to make your post-operative appointment in 2 weeks. 2. Please stay home until you come back to the clinic on first post-operative check up. 3. Please follow instructions on your medications CAREFULLY. 4. If you have abdominal incision, do not cover it unless dressing is necessary because of drainage. OK to shower, but avoid bath. Leave steri-strips until they fall off. If they are still on one week after surgery, you may remove them. 5. If you had vaginal surgery, your doctor may instuct you to take SITZ bath. 6. Yellow, blood tinged odorous vaginal discharge is usually normal after hysterectomy or vaginal surgeries. 7. No sexual intercourse, tampons, or douches until you are completely released from the post-operative care. 8. Avoid constipation by eating right and maybe using some Metamucil or Milk of Magnesia. 9. All presciption refills are given during the working hours. Please do no wait till it runs out. Call the clinic at [phone] before your medication runs out. The clinic will get in touch with your doctor to prescribe medications if necessary. 10. Please remain within 40 mile radius from our hospital because emergencies do happen now and then during the post-operative period. 11. If you have stairs at home, take one step at a time slowly and minimize the number of trips. It helps to stay in one floor for the next few days. No lifting except what you can lift by one hand until you are released from the post-operative care. 12. Driving is discouraged until you are well healed. It may be 3-4 weeks before you feel strong enough to drive. You should be able to turn and look throught the rear window without pain and you should be able to push the brake pedal very hard without pain before you drive. No fast rules, but SAFETY should be your primary concern. DO NOT drive if you are on sedating medications such as narcotics. 13. Call the clinic (during working hours) to make urgent appointment or go to the Emergency room, if any of the following occurs: i. Vaginal bleeding becomes heavy, more than a period. ii. Incision becomes red and sore, or drains pus. iii. Your temperature is over 100.4 or you have chill. iv. IV site becomes red and swollen (a little ``knot?? is usually OK) v. Persistent nausea and vomiting vi. Persistent constipation or diarrhea vii. Rash or allergic reaction to medications. Discharge Attestations EXECUTIVE SALES MANAGER Time Spent in Discharge Care*: greater than 30 min Specific Discharge Activities: Specific discharge activities: educating patient Coding Level of Care Code Established Pt Acute Cabin Equipment Supervisor for Chg Fwd Patient Type Established Exam Expanded Problem Focused Medical Decision Making Low Complexity Diagnoses Adnexal mass N94.89 Time Spent (min) 35
--- NOTE | 2020-03-04 11:11 | ANE.PACU2 ---
Inpatient post-anesthesia follow up: Airway intact: Yes Vital signs: Temperature 98.0 F Pulse Rate 62 Respiratory Rate 16 Blood Pressure 102/64 Pulse Oximetry 99 Oxygen Delivery Me thod Room Air Oxygen Flow Rate Fraction of Inspir ed Oxygen Hydration adequate: Yes Nausea and vomiting: No Pain level: 1 Mental status: Baseline
[2020-03-04 11:25] VITALS: BP 107/73; PULSE 52; RESP 15; TEMP 36.6; O2SAT 98
[2020-03-04 11:35] VITALS: BP 107/73; PULSE 52; RESP 15; TEMP 36.6; O2SAT 98
--- NOTE | 2020-03-04 11:52 | PC.CHAP ---
Pastoral Care Encounter/Spiritual Assessment Type of Contact [] Declined special population paraprofessional visit [] Patient/Family/Request visit [] Outpatient visit [] Follow-up visit [] Physician referral [] Code/Alert [x] Routine visit [] Staff referral [] Actively dying [] Patient sleeping [] Family support [] [] Out of room [] Palliative care [] [x] Receiving care in room [] Pre-surgical visit [] Trauma [] Long length of stay [] ICU visit [] Other: Relational/Emotional Strength [x] Patient feels connected with others/family/visitors/staff [] Distress [] Loneliness/isolation [] Abandonment Spirituality of Patient [x] Person of [place] [] Attends Hoahaoism of their [place] [x] Believes in Prayer [] Reads Bible or Christian materials [] There are Spiritual issues to be addressed Supervisor Home Energy Consultant Interventions [x] Prayer [x] Active listening [x] Non-anxious presence [x] Spiritual/emotional support [] Crisis/trauma care [x] Spiritual counseling [] Bereavement support [] Provided bereavement packet [] Provided Bible/devotional materials [] Provided toy/stuffed animal, coloring book to patient or family member [] Provided Communion [] Anointing/[place] [] Salvation [x] Completed spiritual assessment [] Other: Impact on Illness or Injury [] Angry [] Fearful [] Anxious [] Often cries [] Exhaustion [] Unable to work [] Unable to attend adventism [] Unable to walk/stand [] Unable to read [] Unable to drive [] Unable to eat/drink [] Unable to sleep [] Unable to be with family [] Patient intubated [] Other: Summary She had surgery feeling better going home tomorrow has a good attitude, family will help take of her Time spent with patient 10 mins
== END 2020-03-04 12:00 | disposition home or self-care (01) ==
LOC: MEDSURG 11:11
PROVIDERS: Admitting Provider Obstetrics & Gynecology; PCP Family Medicine; Visit Provider Obstetrics & Gynecology
PROC: (CPT 58662; principal; 2020-03-03 07:00)
DX: N94.89 Other specified conditions associated with female genital organs and menstrual cycle (principal); N80.9 Endometriosis, unspecified; Z87.891 Personal history of nicotine dependence
CPT/HCPCS: 58661; 58662; 12345; 36415; 80048; 81003; 81025; 84703; 85025; 85027; 86850; 86900; 88305; 96361; 96365; 96375; G0378; J0131; J0690; J1100; J1885; J2405; J2704; J3010; J3490; J7030

== ENCOUNTER → 2020-04-10 15:27 | Outpatient (BNVA) | payer OTHER, SELFPAY | PROVIDERS: PCP Family Medicine; Visit Provider Family Medicine | DX: Z11.59 Encounter for screening for other viral diseases (principal) | CPT/HCPCS: 87635 ==

== ENCOUNTER → 2021-06-13 14:49 | Outpatient (BNVA) | payer OTHER, SELFPAY | PROVIDERS: PCP Family Medicine; Visit Provider Nurse Practitioner Family | DX: J06.9 Acute upper respiratory infection, unspecified (principal); Z20.822 Contact with and (suspected) exposure to COVID-19; F17.210 Nicotine dependence, cigarettes, uncomplicated | CPT/HCPCS: 87635 ==

== ENCOUNTER 2022-08-31 13:18 | Oncology outpatient (recurring) (ONCR) | payer OTHER, SELFPAY ==
[2022-08-31 13:42] VITALS: BP 121/73; PULSE 75; TEMP 37.2; O2SAT 99
[2022-08-31] MEDS: sodium chloride 0.9% 1,000 ML 500 ML IV (13:42)
[2022-08-31 15:49] VITALS: BP 123/75; PULSE 73; TEMP 36.8; O2SAT 99
== END 2022-09-01 23:59 | disposition home or self-care (01) ==
LOC: ONCMED 13:21
PROVIDERS: PCP Family Medicine; Visit Provider Family Medicine
DX: O99.280 Endocrine, nutritional and metabolic diseases complicating pregnancy, unspecified trimester (principal); Z79.899 Other long term (current) drug therapy
CPT/HCPCS: 96360; 96361; J7030

== ENCOUNTER → 2022-09-12 13:23 | Outpatient (BNVA) | payer OTHER, SELFPAY | PROVIDERS: PCP Family Medicine; Visit Provider Family Medicine | DX: Z34.90 Encounter for supervision of normal pregnancy, unspecified, unspecified trimester (principal) | CPT/HCPCS: 81000; 81025; 84144; 84443; 84702; 85025; 86592; 86762; 86803; 86850; 86900; 87086; 87340; 87491; 87591; 87624; 87806 ==

== ENCOUNTER 2022-09-28 08:00 | Outpatient (CLI) | payer OTHER, SELFPAY ==
--- NOTE | 2022-09-28 08:15 | US_ITS ---
WS: [id number] EARLY OBSTETRICAL ULTRASOUND (<14 WEEKS). HISTORY: Dating US COMPARISON: None available. Single intrauterine gestational sac is identified. Cardiac activity at 157 BPM. Smoke Rise-rump length collins sures 4.8 cm which corresponds to a gestation of 11w4d. Normal-appearing yolk sac and amnion demonstr ated. No subchorionic hemorrhage. Thin septation along the posterior embryo is most likely the amni on. This membrane courses very close along the posterior embryo. No free fluid. Normal size ovaries with no mass. US/US OB <= 14 weeks fetus [id number] IMPRESSION: 1. Single intrauterine gestation of 11 weeks 4 days with an EDC of 04/15/2023. 2. There is a very thin septation along the posterior embryo seen on the crown lump length images. This is probably the normal amnion but due to its appearan ce and position recommend short-term follow-up, 1-2 weeks should be sufficient. Alternative diagnosis may be a cystic hygroma or nuchal thickening. Believe th is is less likely but we should confirm with additional imaging to try to separ ate the embryo from this membrane.
== END 2022-09-28 08:01 | disposition home or self-care (01) ==
LOC: RAD 08:02
PROVIDERS: PCP Family Medicine; Visit Provider Family Medicine
DX: Z34.91 Encounter for supervision of normal pregnancy, unspecified, first trimester (principal); Z3A.11 11 weeks gestation of pregnancy
CPT/HCPCS: 76801

== ENCOUNTER 2022-10-10 09:08 | Outpatient (CLI) | payer OTHER, SELFPAY ==
--- NOTE | 2022-10-10 09:30 | US_ITS ---
WS: [id number] ULTRASOUND OB FOCUSED HISTORY: Follow-up on abnormal membrane in 1-2 weeks COMPARISON: 09/28/2022 Single intrauterine gestation is identified. Normal amniotic fluid surrounds the fetus. The thin memb joel noted on the prior study is separate from the fetus therefore this is the amniotic membrane. Fet us is noted to be very active and this membrane does not follow the fetus. heart rate at 157 BPM. US/US OB limited [id number] IMPRESSION: 1. Previously described thin membrane adjacent to the posterior fetus is the a mnion. No abnormality was identified on this follow-up exam. 2. Normal cardiac activity.
== END 2022-10-10 09:09 | disposition home or self-care (01) ==
PROVIDERS: PCP Family Medicine; Visit Provider Family Medicine
DX: O28.3 Abnormal ultrasonic finding on antenatal screening of mother (principal)
CPT/HCPCS: 76815

== ENCOUNTER 2022-12-08 08:44 | Outpatient (CLI) | payer OTHER, SELFPAY ==
--- NOTE | 2022-12-08 08:45 | US_ITS ---
WS: [id number] OB ultrasound, 12/08/2022 Clinical Data: Anatomy US about 8 weeks from now Comparison: OB ultrasound, 10/10/2022 Findings: There is a single intrauterine in the breech presentation. The cervix is closed and measure s 3.22 cm The placenta is posterior and grade 0. There is a normal amount of amnionic fluid. The feta l heart rate is 144 beats per minute. Measurements of growth and development: BPD: 4.8 cm 20 weeks 3 days HC: 18.5 cm 20 weeks 6 days AC: 16.4 cm 21 weeks 3 days FL: 3.6 cm 21 weeks 3 days The estimated weight is 417 g, or 15 ounces,; The estimated gestational age is 21w1d with an GUILLAUME of approximately 04/19/2023. anatomy show a normal stomach, kidneys, bladder, cord insertion, upper and lower extremities, t hree-vessel cord, entire spine; four-chamber heart, LVOT and RVOT not well seen; lateral cerebral sami tricles, cerebellum and cisterna magna. US/US OB >= 14 weeks fetus [id number] Impression: 1. Single intrauterine in breech presentation. 2. Estimated gestational age 21w1d with an GUILLAUME of 04/19/2023. 3. heart rate 144 beats per minute.
== END 2022-12-08 08:45 | disposition home or self-care (01) ==
PROVIDERS: PCP Family Medicine; Visit Provider Family Medicine
DX: Z34.02 Encounter for supervision of normal first pregnancy, second trimester (principal); Z3A.21 21 weeks gestation of pregnancy
CPT/HCPCS: 76805